=== PATIENT | female | born 1960 ===

== ENCOUNTER 2019-10-25 12:03 | Outpatient (CLI) | payer OTHER | END 2019-10-25 13:00 | disposition home or self-care (01) | LOC: RAD 12:03 | DX: S99.921A Unspecified injury of right foot, initial encounter (principal) ==

== ENCOUNTER 2019-11-09 14:15 | Outpatient (CLI) | payer OTHER | END 2019-11-09 15:30 | disposition home or self-care (01) | LOC: RAD 14:15 | DX: R07.89 Other chest pain (principal) ==

== ENCOUNTER → 2020-05-17 | Outpatient (CLI) | payer OTHER | END | disposition home or self-care (01) | LOC: RAD 13:26 | DX: M15.0 Primary generalized (osteo)arthritis (principal); R31.29 Other microscopic hematuria ==

== ENCOUNTER 2022-08-13 14:40 | Outpatient (CLI) | payer OTHER | END 2022-08-13 14:50 | disposition home or self-care (01) | LOC: SONOGRAMA 14:40 | PROVIDERS: ATTEND Specialist | DX: M75.100 Unspecified rotator cuff tear or rupture of unspecified shoulder, not specified as traumatic (principal); S46.211A Strain of muscle, fascia and tendon of other parts of biceps, right arm, initial encounter; J45.998 Other asthma ==

== ENCOUNTER 2023-10-07 12:21 | Outpatient (CLI) | payer OTHER | END 2023-10-07 12:33 | disposition home or self-care (01) | LOC: RAD 12:21 | DX: Z01.811 Encounter for preprocedural respiratory examination (principal) ==